=== PATIENT | female | born 1945 | race Caucasian/White ===

== ENCOUNTER → 2017-06-20 | Outpatient (CLI) | payer BC ==
[~2017-06-20] MED LIST: MULT-506 PO
--- NOTE | 2017-06-20 13:10 | DIAGNOSTIC IMAGING REPORT ---
LEFT RIBS UNILATERAL WITH PA CHEST CLINICAL HISTORY: R07.81 Rib pain on left [id number] COMPARISON STUDY: None. FINDINGS: No pleural effusions. No pneumothorax. The heart is normal in size. The lungs are clear. No rib fractures. IMPRESSION: No rib fractures. No pneumothorax. Electronically signed by: Duncan Knott M.D. 06/20/2017 1:09 PM Dictated Date/Time: 06/20/2017 1:06 PM
== END | disposition home or self-care (01) ==
LOC: C.RAD1850 12:11
PROVIDERS: ATTEND Nurse Practitioner Adult Health
DX: R07.81 Pleurodynia (principal)

== ENCOUNTER → 2018-06-17 | Outpatient (CLI) | payer BC ==
[~2018-06-17] MED LIST changes: +ANT25 PO; +CHOL100010 PO
== END | disposition home or self-care (01) ==
LOC: C.LABSPEC 10:40
PROVIDERS: ATTEND Physician Assistant
DX: R39.9 Unspecified symptoms and signs involving the genitourinary system (principal)